=== PATIENT | female | born 1970 ===

== ENCOUNTER 2023-11-21 12:34 | Outpatient (CLI) | payer OTHER, SELFPAY | END 2023-11-21 12:35 | disposition home or self-care (01) | PROVIDERS: PCP Family Medicine; Visit Provider Family Medicine | DX: E66.9 Obesity, unspecified (principal); Z13.228 Encounter for screening for other metabolic disorders; Z13.220 Encounter for screening for lipoid disorders; Z13.29 Encounter for screening for other suspected endocrine disorder | CPT/HCPCS: 80053; 80061; 84443 ==